=== PATIENT | male | born 1955 | race Caucasian/White ===

== ENCOUNTER 2018-11-22 10:48 | Emergency (ER) | payer OTHER ==
[2018-11-22] MEDS: predniSONE 20 MG TAB PO (12:36)
[2018-11-22] MEDS: IBUPROFEN 200 MG TAB PO (12:37)
[2018-11-22] MEDS: HYDROCODONE/APAP (5/325) TAB PO (12:37)
== END 2018-11-22 13:07 | disposition home or self-care (01) ==
LOC: FTE 10:48
DX: M10.071 Idiopathic gout, right ankle and foot (principal); E11.9 Type 2 diabetes mellitus without complications; I10 Essential (primary) hypertension
CPT/HCPCS: 99283; J7512